=== PATIENT | male | born 1945 | race Caucasian/White ===

== ENCOUNTER 2022-04-29 19:22 | Emergency (ER) | payer OTHER ==
[2022-04-30 01:02] LABS: BASOPHIL 0.7 % (0-2); EOSINOPHIL 1.2 % (0-7); HCT 40.1 % (42.0-52.0); HGB 13.3 g/dl (13.2-18.0); LYMPHOCYTE 16.6 % (15-48); MCH 30.4 pg (25.0-31.0); MCHC 33.2 g/dL (32.0-36.0); MCV 91.6 fL (78.0-100.0); MONOCYTE 9.6 % (0-12); MPV 10.3 fL (6.0-9.5); NEUTROPHIL 71.5 % (41-80); NRBC 0; PLT 144 K/uL (150-400); RBC 4.38 M/uL (4.70-6.00); RDW 13.2 % (11.5-14.0); WBC 7.4 K/uL (4.0-10.5)
[2022-04-30 01:24] LABS: ALBUMIN 3.7 g/dL (3.4-5.0); BILIRUBIN - TOTAL 1.8 mg/dL (0.2-1.0); BUN/CREAT RATIO (CALC) 14.3 RATIO; CREATININE 0.98 mg/dL (0.67-1.17); GLOBULIN (CALCULATION) 2.2 g/dL; POTASSIUM 3.6 mmol/L (3.5-5.1); TOTAL PROTEIN 5.9 g/dL (6.4-8.2)
[2022-04-30] MEDS ORDERED: PERCOCET 5-3251 EACH PO (01:35)
== END 2022-04-30 01:55 | disposition home or self-care (01) ==
LOC: FER 19:22
PROVIDERS: Internal Medicine
DX: S22.22XA Fracture of body of sternum, initial encounter for closed fracture (principal); I10 Essential (primary) hypertension; V49.40XA Driver injured in collision with unspecified motor vehicles in traffic accident, initial encounter
CPT/HCPCS: 36415; 70450; 71045; 71250; 72125; 80053; 84484; 85025; 93005